=== PATIENT | male | born 1955 | race Caucasian/White ===

== ENCOUNTER 2016-06-05 10:28 | Emergency (ER) | payer OTHER ==
[~2016-06-05] VITALS: Ht 170.2 cm; Wt 72.6 kg
[~2016-06-05 10:28] MED LIST: DILAUDID
[2016-06-05 10:30] VITALS: BP 146/83
[2016-06-05] MEDS ORDERED: IBUPROFEN 600 MG TABLET PO ONE ×2 (11:00→11:02)
[2016-06-05] MEDS ORDERED: HYDROCODONE/APAP 10/325MG 1 EA TABLET PO ONE (11:00)
[2016-06-05] MEDS ORDERED: HYDROCODONE/APAP 10/325MG 1 EA TABLET ONE (11:02)
== END 2016-06-05 12:03 ==
LOC: ER 10:33
DX: S62.300A Unspecified fracture of second metacarpal bone, right hand, initial encounter for closed fracture (principal); Y04.0XXA Assault by unarmed brawl or fight, initial encounter; Y93.89 Activity, other specified; Y92.89 Other specified places as the place of occurrence of the external cause; Y99.9 Unspecified external cause status
CPT/HCPCS: 29125; 73130; 99284; A4606; Z7610